=== PATIENT | male | born 1985 | race Caucasian/White ===

== ENCOUNTER 2020-01-25 13:19 | Emergency (ER) | payer OTHER, SELFPAY ==
[2020-01-25 13:29] VITALS: BP 124/69; PULSE 96; RESP 16; TEMP 36.7; O2SAT 98; BMI 19.8
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
--- NOTE | 2020-01-25 13:41 | XR_ITS ---
EXAMINATION: XR CHEST CLINICAL INFORMATION: Cough COMPARISON: None TECHNIQUE: Frontal view of the chest was obtained. FINDINGS: The cardiac and mediastinal contours are normal. The lungs are clear. There is no pleural effusion or pneumothorax. There is curvature of the proximal thoracic spine to the left. IMPRESSION: No evidence for acute disease in the chest.
[2020-01-25] MEDS: 0.9 % Sodium Chloride 1,000 ML 999 ML IVCONT (13:56)
[2020-01-25 13:57] VITALS: BP 117/63; PULSE 86; RESP 21; TEMP 36.8; O2SAT 98
--- NOTE | 2020-01-25 14:00 | ECG_ITS ---
Test Reason : WEAKNESS Blood Pressure : / mmHG Vent. Rate : 079 BPM Atrial Rate : 079 BPM P-R Int : 136 ms QRS Dur : 096 ms QT Int : 366 ms P-R-T Axes : 070 109 063 degrees QTc Int : 419 ms Normal sinus rhythm Incomplete right bundle branch block Possible Right ventricular hypertrophy Abnormal ECG No previous ECGs available Referred By: Kaya Simon Electronically Signed By:JONELLE PORRAS MD
[2020-01-25 14:19] LABS: Glucose, Whole Blood 116 mg/dL (60-115)
[2020-01-25 14:27] LABS: MANUAL DIFF FLAG NO
[2020-01-25 14:28] LABS: Basophils Absolute Auto 0.1 X10*3/uL (0.0-0.2); Basophils Percent Auto 0.4 % (0-2); Eosinophils Absolute Auto 0.3 X10*3/uL (0.0-0.4); Hematocrit 36.5 % (42-52); Hemoglobin 12.3 g/dl (14.0-18.0); Imm Gran Abs Auto 0.16 X10*3/uL (0.00-0.03); Lymphocytes Absolute Auto 2.1 X10*3/uL (1.2-4.9); Lymphocytes Percent Auto 12.6 % (20-40); Mean Corpuscular HGB Conc 33.7 g/dl (31.0-36.0); Mean Corpuscular Volume 95.1 fL (80-98); Mean Platelet Volume 8.5 fL (9.4-12.4); Monocytes Absolute Auto 0.9 X10*3/uL (0.1-1.2); Monocytes Percent Auto 5.2 % (2-11); Neutrophils Absolute Auto 12.9 X10*3/uL (2.0-8.3); Neutrophils Percent Auto 78.8 % (45-73); Platelet Count 650 X10*3/uL (160-400); Red Blood Count 3.84 X10*6/uL (4.60-5.80); Red Cell Distribution Width 12.5 % (11.0-16.0); White Blood Count 16.4 X10*3/uL (4.8-10.8)
[2020-01-25 14:47] LABS: Prothrombin Time 12.1 SEC (10.8-13.0)
[2020-01-25 14:49] LABS: Alanine Aminotransferase 59 U/L (0-40); Albumin Level 3.8 g/dL (3.5-5.0); Alkaline Phosphatase 86 U/L (39-117); Anion Gap 13 (12-20); Aspartate Amino Transferase 22 U/L (5-37); Bilirubin Direct < 0.2 mg/dL (0.0-0.5); Bilirubin Total 0.5 mg/dL (0.0-1.0); Blood Urea Nitrogen 15 mg/dL (9-16); Calcium 9.1 mg/dL (8.4-10.2); Carbon Dioxide 28 mmol/L (22-29); Chloride 105 mmol/L (96-108); Creatinine Clr Calc Pharmacy 136.8; Estimated Glomerular Filt Rate > 60; Glucose Random 100 mg/dL (60-115); Magnesium 1.9 mg/dL (1.6-2.6); Sodium 141 mmol/L (135-145); Total Protein 6.9 g/dL (6.5-8.0)
[2020-01-25 14:50] LABS: Partial Thromboplastin Time 35.2 SEC (24.1-38.0)
[2020-01-25] MEDS: iohexoL 350 MG/ML 100 ML INFUS..BTL IV (15:20)
[2020-01-25] MEDS: Aspirin 81 MG TAB.CHEW PO (16:46)
[2020-01-25 16:48] VITALS: BP 105/63; PULSE 64; RESP 20; O2SAT 98
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
--- NOTE | 2020-01-25 17:20 | PC.NURSE ---
PT SIGNED TRANSFER PAPERWORK, AWAITING TO HEAR ROOM ASSIGNMENT FROM [facility].
[2020-01-25 17:32] LABS: SARS COV2 PCR INHOUSE NEGATIVE (Negative)
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
[2020-01-25 18:00] VITALS: BP 127/77; PULSE 68; RESP 18; O2SAT 99
--- NOTE | 2020-01-25 19:15 | PC.NURSE ---
REPORT RECEIVED. PATIENT REQUESTING TO EAT. SPOKE WITH DR MINA PATIENT IS STILL PENDING TRANSFER TO [facility]. AWAITING ANSWER AT THIS TIME.
--- NOTE | 2020-01-25 19:42 | PC.NURSE ---
GIVEN URINAL PER PATIENT REQUEST. HAD SANDWICH AND JUICE AFTER RECEIVING OK FROM DR MINA.
[2020-01-25 20:00] VITALS: BP 132/57; PULSE 78; RESP 22; O2SAT 98
--- NOTE | 2020-01-25 20:32 | PC.NURSE ---
SPOKE WITH DR MINA. PATIENT REQUESTING TYLENOL, OXYCODONE, AND GABAPENTIN. CAN NOT VERIFY GABAPENTIN DOSE. DR MINA GAVE VERBAL ORDER FOR 5MG OXYCODONE AND 65OMG TYELNOL PO.
--- NOTE | 2020-01-25 20:34 | PC.NURSE ---
THIS US CALLS [facility] TRANSFER LINE AGAIN TO INQUIRE ABOUT BED ASSIGNMENT. TRANSFER LINE STATES THAT THE PATIENT IS STILL PENDING A BED ASSIGNMENT. THIS US PLANS TO BOOK TRANSPORTATION ONCE PATIENT HAS BED ASSIGNMENT AT [facility].
[2020-01-25] MEDS: oxyCODONE HCl Immed Release 5 MG TABLET PO (20:39)
[2020-01-25] MEDS: Acetaminophen 325 MG TABLET 650 MG PO (20:39)
--- NOTE | 2020-01-25 22:22 | PC.NURSE ---
[facility] TRANSFER LINE CALLS BACK AT THIS TIME WITH A BED ASSIGNMENT. [facility] ROOM 149 BED A. RN-TO-RN NUMBER IS [phone].
--- NOTE | 2020-01-25 22:28 | PC.NURSE ---
Addendum entered by Dennis Anderson 01/25/20 22:34: [facility] Original Note: TRANSPORTATION TO [facility] BOOKED WITH [facility] AT THIS TIME.
[2020-01-25 22:32] VITALS: BP 132/76; O2SAT 98
[2020-01-25] MEDS: Gabapentin 100 MG CAPSULE 200 MG PO (22:33)
--- NOTE | 2020-01-25 23:07 | PC.NURSE ---
nurse to nurse given to DANISH BENAVIDEZ at [facility].
== END 2020-01-25 23:24 | disposition short-term general hospital (02) ==
PROVIDERS: Emergency Provider Emergency Medicine
DX: I77.71 Dissection of carotid artery (principal); R53.1 Weakness; Z20.828 Contact with and (suspected) exposure to other viral communicable diseases; J45.909 Unspecified asthma, uncomplicated; F12.90 Cannabis use, unspecified, uncomplicated; F17.200 Nicotine dependence, unspecified, uncomplicated; Z87.820 Personal history of traumatic brain injury; Z79.899 Other long term (current) drug therapy; Z97.8 Presence of other specified devices
CPT/HCPCS: 36415; 70496; 70498; 71045; 80048; 80076; 82947; 83735; 85025; 85610; 85730; 87635; 93005; 96360; 99285; 99291

== ENCOUNTER 2020-02-06 11:35 | Emergency (ER) | payer OTHER, SELFPAY ==
[2020-02-06 11:54] VITALS: BP 143/67; PULSE 82; RESP 16; TEMP 37.4; O2SAT 98; BMI 16.9
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
--- NOTE | 2020-02-06 12:25 | PC.NURSE ---
SEEN BY ATTENDING AT THIS TIME
[2020-02-06 12:40] VITALS: BP 113/62; PULSE 81; O2SAT 99
[2020-02-06] MEDS: Ketorolac Tromethamine 30 MG/ML VIAL IVPUSH (12:42)
[2020-02-06] MEDS: Cyclobenzaprine HCl 10 MG TABLET PO (12:44)
--- NOTE | 2020-02-06 12:52 | PC.NURSE ---
MEDICATED PER ORDERS WITH TORADOL AND FLEXERIL. NO OTHER ORDERS AT THIS TIME. PT IN NAD. TEXTING FAMILY
[2020-02-06 13:36] VITALS: BP 107/56; PULSE 92; O2SAT 98
== END 2020-02-06 14:23 | disposition home or self-care (01) ==
PROVIDERS: Emergency Provider Emergency Medicine
DX: G44.89 Other headache syndrome (principal); M79.601 Pain in right arm; R20.0 Anesthesia of skin; F17.200 Nicotine dependence, unspecified, uncomplicated; Z71.6 Tobacco abuse counseling; Z79.899 Other long term (current) drug therapy
CPT/HCPCS: 96374; 99284; J1885

== ENCOUNTER 2021-01-20 18:37 | Emergency (ER) | payer BC, SELFPAY ==
--- NOTE | ~2021-01-20 | XR_ITS ---
EXAMINATION: XR LUMBAR SPINE XR SACRUM/COCCYX XR HIP, BILATERAL WITH PELVIS CLINICAL INFORMATION: Lumbar spine pain. Back pain. Hip pain. COMPARISON: None TECHNIQUE: 2 views of the lumbar spine. 3 views of the sacrum/coccyx. Frontal view of the pelvis with 2 additional views of each hip. FINDINGS: Lumbar spine: No fracture or subluxation. Vertebral body height and alignment are maintained. Disc spaces are maintained. Nonobstructive bowel gas pattern. Sacrum/coccyx: No fracture or cortical disruption. The sacroiliac joints are symmetric. The sacrum appears intact. The coccyx is appropriately aligned. Pelvis/hips: No fracture or dislocation. The hips are well aligned. Joint spaces are maintained. The sacroiliac joints and pubic symphysis are intact. XR/XR sacrum coccyx min 2V IMPRESSION: No acute osseous abnormality involving the lumbosacral spine or pelvis/hips.
--- NOTE | ~2021-01-20 | XR_ITS ---
EXAMINATION: XR LUMBAR SPINE XR SACRUM/COCCYX XR HIP, BILATERAL WITH PELVIS CLINICAL INFORMATION: Lumbar spine pain. Back pain. Hip pain. COMPARISON: None TECHNIQUE: 2 views of the lumbar spine. 3 views of the sacrum/coccyx. Frontal view of the pelvis with 2 additional views of each hip. FINDINGS: Lumbar spine: No fracture or subluxation. Vertebral body height and alignment are maintained. Disc spaces are maintained. Nonobstructive bowel gas pattern. Sacrum/coccyx: No fracture or cortical disruption. The sacroiliac joints are symmetric. The sacrum appears intact. The coccyx is appropriately aligned. Pelvis/hips: No fracture or dislocation. The hips are well aligned. Joint spaces are maintained. The sacroiliac joints and pubic symphysis are intact. XR/XR lumbar spine 2-3V IMPRESSION: No acute osseous abnormality involving the lumbosacral spine or pelvis/hips.
--- NOTE | ~2021-01-20 | XR_ITS ---
EXAMINATION: XR LUMBAR SPINE XR SACRUM/COCCYX XR HIP, BILATERAL WITH PELVIS CLINICAL INFORMATION: Lumbar spine pain. Back pain. Hip pain. COMPARISON: None TECHNIQUE: 2 views of the lumbar spine. 3 views of the sacrum/coccyx. Frontal view of the pelvis with 2 additional views of each hip. FINDINGS: Lumbar spine: No fracture or subluxation. Vertebral body height and alignment are maintained. Disc spaces are maintained. Nonobstructive bowel gas pattern. Sacrum/coccyx: No fracture or cortical disruption. The sacroiliac joints are symmetric. The sacrum appears intact. The coccyx is appropriately aligned. Pelvis/hips: No fracture or dislocation. The hips are well aligned. Joint spaces are maintained. The sacroiliac joints and pubic symphysis are intact. XR/XR hips CYRUS min 3V IMPRESSION: No acute osseous abnormality involving the lumbosacral spine or pelvis/hips.
[2021-01-20 20:23] VITALS: BP 136/90; PULSE 74; RESP 16; TEMP 36.8; O2SAT 99; BMI 17.7
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
[2021-01-20] MEDS: diazePAM 5 MG TABLET PO (21:07)
[2021-01-20] MEDS: Ketorolac Tromethamine 15 MG/ML VIAL 30 MG IM (21:07)
== END 2021-01-20 23:01 | disposition home or self-care (01) ==
PROVIDERS: Emergency Provider Emergency Medicine; PCP Nurse Practitioner Family
DX: M54.31 Sciatica, right side (principal); M54.16 Radiculopathy, lumbar region; G89.29 Other chronic pain; M54.50 Low back pain, unspecified; Z86.73 Personal history of transient ischemic attack (TIA), and cerebral infarction without residual deficits
CPT/HCPCS: 72100; 72220; 73522; 96372; 99283; 99284; J1885

== ENCOUNTER 2022-11-21 05:22 | Emergency (ER) | payer BC, SELFPAY ==
[2022-11-21 05:28] VITALS: BP 142/73; PULSE 89; RESP 12; TEMP 36.6; O2SAT 99; BMI 17.2
[2022-11-21 05:39] VITALS: BP 142/73; PULSE 89; RESP 12; TEMP 36.6; O2SAT 99
--- OUTSIDE RECORDS SUMMARY | 2022-11-21 05:43 | XMS_ITS | Continuity of Care Document ---
Author Name Unknown Organization [facility] Address [address] [place] [phone]- Care Team Providers Care Ground Services Instructor Name Role Phone Angelica PENA, Betty Sanchez Primary Care Physicia n Encounter [facility] Date(s): 10/27/20 - 11/03/20 [facility] [address] [place] [id number]- Encounter Diagnosis Neuropathic pain(Discharge Diagnosis) - 10/27/20 TBI (traumatic brain injury)(Discharge Diagnosis) - 10/28/20 Rotator cuff syndrome of left shoulder(Discharge Diagnosis) - 10/28/20 Attending Physician: Rossana ALVAREZ, Raul Silva Referring Physician: Angelica PENA, Betty Sanchez Allergies, Adverse Reactions, Alerts Substance Reaction Severity Status Glutens Active Immunizations Given and Recorded Vaccine Date Status Refusal Reason influenza virus vaccine, inactivated 01/27/20 Give n Not Given Vaccine Date Status Refusal Reason pneumococcal 23-valent vaccine 01/27/20 Not Given Patient Refuses Medications albuterol CFC free 90 mcg/inh inhalation aerosol 2 puffs, Inhalation, 4 times a day, PRN for wheezing, # 1 each, 0 Refills, Maintenance, Aerosol Start Date: 04/03/13 Stop Date: 05/03/13 Status: Ordered aspirin 325 mg oral tablet 325 mg, 1, tablet, By Mouth, Daily, # 30 tablet, Refills 0, Maintenance, 05/13/20 10:31:00 EST, Partial fill upon patient request if the prescription is for a schedule II opioid drug. Start Date: 05/13/20 Status: Ordered gabapentin 100 mg oral capsule 100 mg, 1, capsule, By Mouth, 3 times a day, # 90 capsule, Refills 0, Tot. Refills 0, Maintenance, 09/02/20 15:58:00 EDT, Route to Pharmacy Electronically, [facility]/pharmacy #[id number], Partial fill upon patient request if the prescription is for a schedule II... Start Date: 09/02/20 Stop Date: 10/02/20 Status: Ordered gabapentin 300 mg oral capsule See Instructions, 1 capsule By Mouth in a.m. & afternoon & 2 capsules at night. Increase asdirected., # 90 capsule, Refills 1, Tot. Refills 1, Maintenance, 10/27/20 16:23:00 EDT, Instructions Replace Required Details, Route to Pharmacy Electronically... Start Date: 10/27/20 Status: Ordered Outpatient PT Outpatient PT, See Instructions, # 1 each, Refills 0, Tot. Refills 0, Maintenance, Outpatient Physical Therapy, 01/28/20 16:44:00 EDT, Supply Start Date: 01/28/20 Status: Ordered physical therapy physical therapy, See Instructions, # 1 each, Refills 0, Tot. Refills 0, Maintenance, Please see discharge instructions for specifics, 01/29/20 15:08:00 EDT, Supply Start Date: 01/29/20 Status: Ordered Problem List Condition Effective Dates Status Health Status Inform ant Asthma(Confirmed) Active CD (celiac disease)(Confirmed) Active Carotid artery dissection(Confirmed) Active History of pneumothorax(Confirmed) Active History of CVA (cerebrovascu lar accident)(Confirmed) Active Neuropathic pain(Confirmed) Active Rotator cuff syndrome of lef t shoulder(Confirmed) Active Moderate tobacco use disorder(Confirmed) Active TBI (traumatic brain injury)(Confirmed) Active Diagnosis Diagnosis Type Effective Dates Health Status Clinical Service Informant Neuropathic pain Discharge Diagnosis 10/27/20 TBI (traumatic brain injury) Discharge Diagnosis 10/28/20 Rotator cuff syndrome of left shoulder Discharge Diagnosis 10/28/20 Vital Signs Most recent to oldest [Reference Range]: 1 Height 173 cm (10/27/20 3:48 PM) Weight 54.2 kg (10/27/20 3:48 PM) Pulse Rate [55-90 bpm] 72 bpm (10/27/20 3:48 PM) Body Mass Index [18.5-24.99] 18.11 *L* (10/27/20 3:48 PM) Blood Pressure [90-138/55-84 mm Hg] 127/ 71mm Hg (10/27/20 3:48 PM) Blood pressure sites Arm, left (10/27/20 3:48 PM) Social History Social History Type Response Smoking Status 10 or more cigarette s (1/2 pack or more)/day in last 30 days entered on: 05/13/20 Sex
--- OUTSIDE RECORDS SUMMARY | 2022-11-21 05:43 | XMS_ITS | Continuity of Care Document ---
Author Name Unknown Organization [facility] Address [address] [place] [address]- Care Team Providers Care Custom Feed Mill Operator Name Role Phone Angelica PENA, Betty Sanchez Primary Care Physicia n Encounter [facility] Date(s): 09/05/20 - 12/02/20 [facility] [address] [place] [address]- Attending Physician: Angelica PENA, Betty Sanchez Referring Physician: Zaheer Reese MD Allergies, Adverse Reactions, Alerts Substance Reaction Severity Status Glutens Active Immunizations Given and Recorded Vaccine Date Status Refusal Reason influenza virus vaccine, inactivated 01/27/20 Give n influenza virus vaccine, inactivated 01/09/17 Henry rded hepatitis B pediatric vaccine 05/16/99 Recorded hepatitis B pediatric vaccine 03/30/99 Recorded hepatitis B pediatric vaccine 12/08/98 Recorded tetanus-diphtheria toxoids (Td) 12/08/98 Recorded Measles/Mumps/Rubella Virus Vaccine 12/08/98 Recor ded Measles/Mumps/Rubella Virus Vaccine 02/14/88 Recor ded Haemophilus B conjugate (HbOC) vaccine 05/09/88 Re corded Not Given Vaccine Date Status Refusal Reason [...] drug. Start Date: 05/13/20 Status: Ordered gabapentin 300 mg oral capsule [...] disorder(Confirmed) Active TBI (traumatic brain injury)(Confirmed) Active Social History Social History Type Response Smoking Status 10 or more cigarette s (1/2 pack or more)/day in last 30 days entered on: 05/13/20 Sex
--- OUTSIDE RECORDS SUMMARY | 2022-11-21 05:43 | XMS_ITS | Continuity of Care Document ---
Author Name Unknown Organization [facility] Address [address] [place] [address]- Care Team Providers Care Opening Machine Cleaner Name Role Phone Angelica PENA, Betty Sanchez Primary Care Physicia n [facility]counter [facility] Date(s): 11/02/20 - 12/21/20 [facility] [address] [place] [address]- Attending Physician: Not on Staff, Attending MD Allergies, Adverse Reactions, Alerts Substance Reaction [...]
--- OUTSIDE RECORDS SUMMARY | 2022-11-21 05:43 | XMS_ITS | Continuity of Care Document ---
Author Name Unknown Organization [facility] Address [address] [place] [address]- Care Team Providers Care Recreation Therapy Aide Name Role Phone Angelica PENA, Betty Sanchez Primary Care Physicia n Encounter [facility] Date(s): 11/30/20 - 02/09/21 [facility] [address] [place] [address]- Attending Physician: Nancy Gallo NP Allergies, Adverse Reactions, Alerts Substance Reaction Severity [...] capsule, Refills 1, Tot. Refills 1, Maintenance, 12/26/20 16:56:00 EDT, Instructions Replace Required Details, Route to Pharmacy Electronically... Start Date: 12/26/20 Status: Ordered Outpatient PT Outpatient PT, See [...]
--- OUTSIDE RECORDS SUMMARY | 2022-11-21 05:43 | XMS_ITS | Continuity of Care Document ---
Author Name Unknown Organization [facility] Address [address] [facility], [address], [address] [place] [id number]- Care Team Providers Care Forensic Dna Analyst Name Role Phone Angelica PENA, Betty Sanchez Primary Care Physicia n Encounter [facility] Date(s): 03/01/20 - 03/31/20 [facility] [address], [address], [address] [place] [id number]- Attending Physician: Fidelia Aguilar Admitting Physician: Fidelia Aguilar Referring Physician: AdmtrFidelia Allergies, Adverse Reactions, Alerts Substance Reaction Severity [...] Date: 04/03/13 Stop Date: 05/03/13 Status: Ordered apixaban 5 mg oral tablet 1 tablet = 5 mg, By Mouth, 2 times a day, # 60 tablet, 0 Refills, Maintenance, 02/11/20 13:50:00 EDT, Tablet, [id number], 173.5, cm, 02/11/20 13:23:00 EDT, Height, 52.2, kg, 01/26/20 0:39:00 EDT, Dry Weight Start Date: 02/11/20 Status: Ordered Neurontin 100 mg oral capsule 100 mg, 1, capsule, By Mouth, 3 times a day, Take ass needed for pain, # 90 capsule, Refills 0, Tot. Refills 0, Maintenance, 01/29/20 14:17:00 EDT, Route to Pharmacy Electronically, [facility], 183, cm, 01/20/20 15:10:00 EDT, Height, 52.... Start Date: 01/29/20 Status: Ordered Outpatient PT Outpatient PT, See Instructions, # 1 each, Refills 0, Tot. Refills 0, Maintenance, Outpatient Physical Therapy, 01/28/20 16:44:00 EDT, Supply Start Date: 01/28/20 Status: Ordered OxyContin = 5 mg, By Mouth, 2 times a day, 0 Refills, Maintenance, 01/26/20 0:48:00 EDT, Partial fill upon patient request Start Date: 01/26/20 Status: Ordered physical therapy physical therapy, See Instructions, # 1 each, Refills 0, Tot. Refills 0, Maintenance, Please see discharge instructions for specifics, 01/29/20 15:08:00 EDT, Supply Start Date: 01/29/20 Status: Ordered Problem List Condition Effective Dates Status Health Status Inform ant Asthma(Confirmed) Active CD (celiac disease)(Confirmed) Active Carotid artery dissection(Confirmed) Active History of pneumothorax(Confirmed) Active Polysubstance abuse(Confirmed) Active Moderate tobacco use disorder(Confirmed) Active
--- OUTSIDE RECORDS SUMMARY | 2022-11-21 05:43 | XMS_ITS | Continuity of Care Document ---
Author Name Unknown Organization [facility] Address [address] [place] [id number]- Care Team Providers Care Combustion Engineer Name Role Phone Angelica SYSTEMS ARCHITECTURE ANALYST, Betty Sanchez Primary Care Physicia n Encounter [facility] Date(s): 05/06/20 - 09/03/20 [facility] [address] [place] [phone]- Attending Physician: Rossana ALVAREZ, Raul Silva Allergies, Adverse Reactions, Alerts Substance Reaction Severity [...] 09/02/20 15:58:00 EDT, Route to Pharmacy Electronically, [facility]/pharmacy #[id number], Partial fill upon patient request if the prescription is for a schedule II... Start Date: 09/02/20 Stop Date: 10/02/20 Status: Ordered Outpatient PT Outpatient PT, See [...] History of CVA (cerebrovascu lar accident)(Confirmed) Active Moderate tobacco use disorder(Confirmed) Active Social History Social History Type Response Smoking Status 10 or more cigarette s (1/2 pack or more)/day in last 30 days entered on: 05/13/20 Sex
--- OUTSIDE RECORDS SUMMARY | 2022-11-21 05:43 | XMS_ITS | Continuity of Care Document ---
Author Name Unknown Organization [facility] Address [address] [place] [phone]- Care Team Providers Care Technical Service Rep Name Role Phone Angelica PENA, Betty Sancehz Primary Care Physicia n [place] [facility] [place] 08/10/20 - 12/08/20 [facility] [address] [place] [address]- Attending Physician: Fahad Denney MD Admitting Physician: Fahad Denney MD Referring Physician: Betty Dominguez NP Allergies, Adverse Reactions, Alerts Substance Reaction [...]
--- OUTSIDE RECORDS SUMMARY | 2022-11-21 05:43 | XMS_ITS | Continuity of Care Document ---
Author Name Unknown Organization [facility] Address [address] [place] [address]- Care Team Providers Care Sandblast Carver Name Role Phone Angelica PENA, Betty Sanchez Primary Care Physicia n Encounter [facility] Date(s): 06/09/21 - 07/09/21 [facility] [address] [place] [address]- Allergies, Adverse Reactions, Alerts Substance Reaction Severity Status Glutens Active Immunizations Given and Recorded Vaccine Date Status Refusal Reason SARS-CoV-2 (COVID-19) mRNA BNT-162b2 vac 03/06/21 Recorded influenza virus vaccine, inactivated 1 02/14/21 Gi ria influenza virus vaccine, inactivated 01/27/20 Give n [...] 23-valent vaccine 01/27/20 Not Given Patient Refuses 1Result Comment: [facility]# [id number] Medications albuterol CFC free 90 mcg/inh inhalation aerosol 2, puffs, Inhalation, 4 times a day, PRN, # 1 each, Refills 1, Tot. Refills 1, Maintenance, 06/21/21 14:48:00 EST, Aerosol, Route to Pharmacy Electronically, [id number], [facility]/pharmacy #[id number], 173, cm, 03/23/21 10:05:00 EST, Hei... Start Date: 06/21/21 Stop Date: 08/20/21 Status: Ordered gabapentin 300 mg oral capsule See Instructions, TAKE 1 CAPSULE BY MOUTH IN THE AM AND AFTERNOON, AND 2 CAPS AT NIGHT, # 90 capsule, Refills 3, Tot. Refills 3, 06/09/21 16:42:00 EST, Instructions Replace Required Details, Route toPharmacy Electronically, [facility]/pharmacy #[id number], 173, c... Start Date: 06/09/21 Status: Ordered Outpatient PT Outpatient PT, See [...]
--- OUTSIDE RECORDS SUMMARY | 2022-11-21 05:43 | XMS_ITS | Continuity of Care Document ---
Author Name Unknown Organization [facility] Address [address] [place] [address]- Care Team Providers Care Wind Science And Planning Name Role Phone Angelica PENA, Betty Sanchez Primary Care Physicia n Encounter [facility] [place] Date(s): 05/17/20 - 07/17/[address] [address]- Discharge Disposition: A-D/C Home Attending Physician: Kaya Ruggiero Admitting Physician: Kaya Ruggiero Referring Physician: Kaya Ruggiero Allergies, Adverse Reactions, Alerts Substance Reaction Severity [...] opioid drug. Start Date: 05/13/20 Status: Ordered Outpatient PT Outpatient PT, See [...] artery dissection(Confirmed) Active History of pneumothorax(Confirmed) Active Moderate tobacco use disorder(Confirmed) Active Social History Social History Type Response Smoking Status 10 or more cigarette s (1/2 pack or more)/day in last 30 days entered on: 05/13/20 Sex
--- OUTSIDE RECORDS SUMMARY | 2022-11-21 05:43 | XMS_ITS | Continuity of Care Document ---
Author Name Unknown Organization [facility] Address [address] [place] [address]- Care Team Providers Care Tester Equipment Name Role Phone Angelica PENA, Betty Sanchez Primary Care Physicia n [facility]counter [facility] Date(s): 08/18/21 - 09/17/21 [facility] [address] [place] [address]- Attending Physician: Admchristiane, Fidelia Admitting Physician: AdmtrFidelia Referring Physician: Admtr, Ar8 Allergies, Adverse Reactions, Alerts Substance Reaction Severity [...] 01/27/20 Not Given Patient Refuses 1Result Comment: [facility] [place] 2[place]# [id number] Medications Albuterol (Eqv-Proventil HFA) 90 mcg/inh inhalation aerosol 2 puffs, Inhalation, 4 times a day, PRN NEEDED FOR WHEEZING, # 6.7 each, 2 Refills, [id number], 173, cm, 03/23/21 10:05:00 EST, Height, 52.2, kg, 01/26/20 0:39:00 EDT, Dry Weight Start Date: 08/16/21 Status: Ordered gabapentin 300 mg oral capsule See Instructions, TAKE 1 CAPSULE BY MOUTH IN THE AM AND AFTERNOON, AND 2 CAPS AT NIGHT, # 90 capsule, Refills 5, Tot. Refills 5, 09/04/21 7:54:00 EDT, Instructions Replace Required Details, Route to Pharmacy Electronically, [facility]/pharmacy #[id number], 173, cm... Start Date: 09/04/21 Status: Ordered Outpatient PT Outpatient PT, See [...]
--- OUTSIDE RECORDS SUMMARY | 2022-11-21 05:43 | XMS_ITS | Continuity of Care Document ---
Author Name Unknown Organization [facility] Address [address] [place] [address]- Care Team Providers Care Senior Manufacturing Technician Name Role Phone Angelica PENA, Betty Sanchez Primary Care Physicia n Encounter [facility] [place] Date(s): 08/04/20 - 09/03/20 [facility] [address] [place] [address]- Attending Physician: Fidelia Aguilar Admitting Physician: Fidelia [...] 09/02/20 15:58:00 EDT, Route to Pharmacy Electronically, [facility]/pharmacy #[id number], Partial fill upon patient request if the [...]
--- OUTSIDE RECORDS SUMMARY | 2022-11-21 05:43 | XMS_ITS | Continuity of Care Document ---
Author Name Unknown Organization [facility] Address [address] [place] [address]- Care Team Providers Care Network Announcer Name Role Phone Angelica PENA, Betty Sanchez Primary Care Physicia n [place] [facility] [place] 05/27/20 - 06/03/20 [facility] [address] [place] [address]- [place] Encounter Diagnosis Weakness of right upper extremity(Discharge Diagnosis) - 05/27/20 Attending Physician: Angelica PENA, Betty Sanchez Allergies, Adverse [...] pneumothorax(Confirmed) Active Moderate tobacco use disorder(Confirmed) Active Diagnosis Diagnosis Type Effective Dates Health Status Cl inical Service Informant Weakness of right upper extremity Discharge Diagnosis 05/27/20 Vital Signs Most recent to oldest [Reference Range]: 1 Height 173 cm (05/27/20 9:18 AM) Weight Obtained Via Standing scale (05/27/20 9:18 AM) Social History Social History Type Response Smoking Status 10 or more cigarette s (1/2 pack or more)/day in last 30 days entered on: 05/13/20 Sex
--- OUTSIDE RECORDS SUMMARY | 2022-11-21 05:43 | XMS_ITS | Continuity of Care Document ---
Author Name Unknown Organization [facility] Address [address] [place] [address]- Care Team Providers Care Government Operations Consultant Name Role Phone Angelica PENA, Betty Sanchez Primary Care Physicia n [facility]counter [facility] Date(s): 10/18/20 - 12/21/20 [facility] [address] [place] [address]- Attending Physician: Marcelle ALVAREZ, Everett Cuellar Admitting Physician: Everett Ibanez MD Referring Physician: Angelica PENA, Betty Sanchez Allergies, [...]
--- OUTSIDE RECORDS SUMMARY | 2022-11-21 05:43 | XMS_ITS | Continuity of Care Document ---
Author Name Unknown Organization [facility] Address [address] [place] [address]- Care Team Providers Care Pedodontist Name Role Phone Not on Staff, PCP Primary Care Physician Unavail able [place] [facility] [place] [facility] [place] 01/25/20 - 01/29/[address] [address]- [facility] Discharge Disposition: A-D/C Home Attending Physician: Hipolito Hidalgo MD Admitting Physician: Liliam ALVAREZ, Mikal P Referring Physician: Not on Staff, Referring MD Allergies, Adverse Reactions, Alerts Substance Reaction Severity Status Glutens Active Immunizations Given and Recorded Vaccine Date Status Refusal Reason influenza virus vaccine, inactivated 01/27/20 Give n Not Given Vaccine Date Status Refusal Reason pneumococcal 23-valent vaccine 01/27/20 Not Given Patient Refuses Medications acetaminophen 325 mg oral tablet 650 mg, 2, tablet, By Mouth, Every 6 hours, PRN, Refills 0, Maintenance, Pain , Mild, 01/21/20 15:01:00 EDT Start Date: 01/21/20 Status: Ordered albuterol CFC free 90 mcg/inh inhalation aerosol 2 puffs, Inhalation, 4 times a day, PRN for wheezing, # 1 each, 0 Refills, Maintenance, Aerosol Start Date: 04/03/13 Stop Date: 05/03/13 Status: Ordered apixaban 5 mg oral tablet 1 tablet = 5 mg, By Mouth, 2 times a day, # 60 tablet, 0 Refills, Maintenance, 01/29/20 14:16:00 EDT, Tablet, [facility], 183, cm, 01/20/20 15:10:00 EDT, Height, 52.2, kg, 01/26/20 0:39:00 EDT, Dry Weight Start Date: 01/29/20 Status: Ordered Neurontin 100 mg oral capsule 100 mg, 1, capsule, By Mouth, 3 times a day, Take ass needed for pain, # 90 capsule, Refills 0, Tot. Refills 0, Maintenance, 01/29/20 14:17:00 EDT, Route to Pharmacy Electronically, [facility], 183, cm, 01/20/20 15:10:00 EDT, Height, 52.... Start Date: 01/29/20 Status: Ordered Outpatient PT Outpatient PT, See Instructions, # 1 each, Refills 0, Tot. Refills 0, Maintenance, Outpatient Physical Therapy, 01/28/20 16:44:00 EDT, Supply Start Date: 01/28/20 Status: Ordered oxyCODONE 5 mg oral tablet 5 mg, 1, tablet, By Mouth, Every 6 hours, PRN, for 3 days, # 12 tablet, Refills 0, Tot. Refills 0, Acute 02/01/20 14:22:00 EDT, as needed for pain, 01/29/20 14:22:00 EDT, Print Requisition, Partial fill upon patient request Start Date: 01/29/20 Stop Date: 02/01/20 Status: Ordered OxyContin = 5 mg, By Mouth, 2 times a day, 0 Refills, Maintenance, 01/26/20 0:48:00 EDT, Partial fill upon patient request Start Date: 01/26/20 Status: Ordered physical therapy physical therapy, See Instructions, # 1 each, Refills 0, Tot. Refills 0, Maintenance, Please see discharge instructions for specifics, 01/29/20 15:08:00 EDT, Supply Start Date: 01/29/20 Status: Ordered Tylenol 325 mg oral tablet 650 mg, 2, tablet, By Mouth, Every 6 hours, PRN, for 14 days, # 30 tablet, Refills 0, Tot. Refills 0, Acute 02/12/20 14:17:00 EDT, Pain , Mild Temperature Headache, 01/29/20 14:17:00 EDT, Route to Pharmacy Electronically, [facility],... Start Date: 01/29/20 Stop Date: 02/12/20 Status: Ordered Problem List Condition Effective Dates Status Health Status Inform ant Asthma(Confirmed) Active Polysubstance abuse(Confirmed) Active Vital Signs Most recent to oldest [Reference Range]: 1 2 3 Weight 52.2 kg (01/26/20 12:39 AM) Oxygen Saturation [94-100 %] 86 % *L* (01/29/20 3:00 PM) 98 % (01/29/20 10:35 AM) 99 % (01/29/20 7:00 AM) Pulse Rate [55-90 bpm] 111 bpm *H* (01/29/20 3:00 PM) 103 bpm *H* (01/29/20 10:35 AM) 72 bpm (01/29/20 7:00 AM) Blood Pressure [90-138/55-84 mm Hg] 113/85mm Hg (01/29/20 3:00 PM) 113/72mm Hg (01/29/20 10:35 AM) 103/65mm Hg (01/29/20 7:00 AM) Respiratory Rate [16-30 br/min] 16 br/min (01/29/20 3:18 PM) 16 br/min (01/29/20 3:18 PM) 16 br/min (01/29/20 3:18 PM) Temperature [96.8-100.4 DegF] 98.4 DegF (01/29/20 3:00 PM) 98.6 DegF (01/29/20 10:35 AM) 96.7 DegF *L* (01/29/20 7:00 AM) Liters per Minute 0 L/min (01/29/20 7:00 AM) Mode of Delivery (Oxygen) Room air (01/29/20 3:00 PM) Room air (01/29/20 10:35 AM) Room air (01/29/20 7:00 AM) Blood pressure sites Arm, left (01/29/20 3:00 PM) Arm, left (01/29/20 10:35 AM) Arm, right (01/29/20 7:00 AM) Temperature Route Temporal (01/29/20 3:00 PM) Temporal (01/29/20 10:35 AM) Temporal (01/29/20 7:00 AM) Dry Weight 52.2 kg (01/26/20 12:39 AM)
--- OUTSIDE RECORDS SUMMARY | 2022-11-21 05:43 | XMS_ITS | Continuity of Care Document ---
Author Name Unknown Organization [facility] Address [address] [place] [address]- Care Team Providers Care Manager Product Design Name Role Phone Angelica PENA, Betty Sanchez Primary Care Physicia n [facility]counter [facility] Date(s): 05/20/21 - 09/17/21 [facility] [address] [place] [address]- Attending Physician: Not on Staff, Attending MD [...] 01/27/20 Not Given Patient Refuses 1Result Comment: [facility]# [id number] Medications Albuterol (Eqv-Proventil HFA) 90 mcg/inh inhalation aerosol 2 puffs, Inhalation, 4 times a day, PRN NEEDED FOR WHEEZING, # 6.7 each, 2 Refills, [facility] [id number], 173, cm, 03/23/21 10:05:00 EST, Height, 52.2, kg, 01/26/20 0:39:00 EDT, Dry Weight Start Date: 08/16/21 Status: Ordered gabapentin 300 mg oral capsule See Instructions, TAKE 1 CAPSULE BY MOUTH IN THE AM AND AFTERNOON, AND 2 CAPS AT NIGHT, # 90 capsule, Refills 5, Tot. Refills 5, 09/04/21 7:54:00 EDT, Instructions Replace Required Details, Route to Pharmacy Electronically, [facility]/pharmacy #[id number], 173, cm... Start Date: 09/04/21 [...]
--- OUTSIDE RECORDS SUMMARY | 2022-11-21 05:43 | XMS_ITS | Continuity of Care Document ---
Author Name Unknown Organization [facility] Address [address] [place] [address]- Care Team Providers Care Plastic Straightening Roll Operator Name Role Phone Angelica PENA, Betty Sanchez Primary Care Physicia n Encounter [facility] [place] Date(s): 05/13/20 - 05/20/20 [facility] [address] [place] [address]- Encounter Diagnosis Carotid artery dissection(Discharge Diagnosis) - 05/13/20 Weakness of right upper extremity(Discharge Diagnosis) - 05/13/20 Attending Physician: Not on Staff, Attending MD [...] Effective Dates Health Status Clinical Service Informant Carotid artery dissection Discharge Diagnosis 05/13/20 Weakness of right upper extremity Discharge Diagnosis 05/13/20 Vital Signs Most recent to oldest [Reference Range]: 1 Height 173.5 cm (05/13/20 9:28 AM) Social History Social History Type Response Smoking Status 10 or more cigarette s (1/2 pack or more)/day in last 30 days entered on: 05/13/20 Sex
--- OUTSIDE RECORDS SUMMARY | 2022-11-21 05:43 | XMS_ITS | Continuity of Care Document ---
Author Name Unknown Organization [facility] Address [address] [place] [address]- Care Team Providers Care Cloth Shrinker Name Role Phone Angelica PENA, Betty Sanchez Primary Care Physicia n Encounter [facility] [place] Date(s): 02/11/20 - 02/18/20 [facility] [address] [place] [address]- Attending Physician: Angelica PENA, Betty Sanchez Allergies, [...] 01/29/20 14:17:00 EDT, [facility], [facility], cm, 01/20/20 15:10:00 EDT, Height, [...] tablet, Refills 0, Tot. Refills 0, Acute 02/26/20 14:17:00 EST, Pain , Mild Temperature Headache, 02/12/20 14:17:00 EDT, Route to Pharmacy Electronically, [facility]/pharmacy #[id number], 173.5... Start Date: 02/12/20 Stop Date: 02/26/20 Status: Ordered Problem List Condition Effective Dates Status Health Status Inform ant Asthma(Confirmed) Active CD (celiac disease)(Confirmed) Active Carotid artery dissection(Confirmed) Active History of pneumothorax(Confirmed) Active Polysubstance abuse(Confirmed) Active Moderate tobacco use disorder(Confirmed) Active Vital Signs Most recent to oldest [Reference Range]: 1 Height 173.5 cm (02/11/20 1:23 PM) Weight 55.2 kg (02/11/20 1:23 PM) Oxygen Saturation [94-100 %] 97 % (02/11/20 1:23 PM) Pulse Rate [55-90 bpm] 96 bpm *H* (02/11/20 1:23 PM) Body Mass Index [18.5-24.99] 18.34 *L* (02/11/20 1:23 PM) Blood Pressure [90-138/55-84 mm Hg] 122/ 72mm Hg (02/11/20 1:23 PM) Mode of Delivery (Oxygen) Room air (02/11/20 1:23 PM) Blood pressure sites Arm, left (02/11/20 1:23 PM) Weight Obtained Via Standing scale (02/11/20 1:23 PM)
--- OUTSIDE RECORDS SUMMARY | 2022-11-21 05:43 | XMS_ITS | Continuity of Care Document ---
Author Name Unknown Organization [facility] Address [address] [facility], [address] Floor, [address] [place] [address]- Care Team Providers Care Coverer Name Role Phone Angelica PENA, Betty Sanchez Primary Care Physicia n Encounter [facility] [place] Date(s): 01/28/20 - 03/31/20 [facility] [address], [address], [address] [place] [address]- Attending Physician: Tommy Levin MD Admitting Physician: Tommy Levin MD Referring Physician: Alyx Potter NP Allergies, Adverse Reactions, Alerts Substance Reaction [...] 01/29/20 14:17:00 EDT, Route to Pharmacy Electronically, [facility], 183, cm, 01/20/20 15:10:00 EDT, [...]
--- OUTSIDE RECORDS SUMMARY | 2022-11-21 05:43 | XMS_ITS | Continuity of Care Document ---
Author Name Unknown Organization [facility] Address [address] [place] [address]- Care Team Providers Care Supervisor Dry Paste Name Role Phone Angelica PENA, Betty Sanchez Primary Care Physicia n [place] [facility] [place] 09/09/20 [facility] [address] [place] [address]- Encounter Diagnosis History of CVA (cerebrovascular accident)(Discharge Diagnosis) - 09/02/20 Neuropathic pain of left lower extremity(Discharge Diagnosis) - 09/02/20 Attending Physician: Zaheer Reese MD Referring Physician: Angelica PENA, Betty Sanchez [...] 09/02/20 15:58:00 EDT, Route to Pharmacy Electronically, [facility]/pharmacy #[id number], Partial fill upon patient request if the [...] accident)(Confirmed) Active Moderate tobacco use disorder(Confirmed) Active Diagnosis Diagnosis Type Effective Dates Health Status Clinical Service Informant History of CVA (cerebrovascular accident) Discharge Diagnosis 09/02/20 Neuropathic pain of left lower extremity Discharge Diagnosis 09/02/20 Vital Signs Most recent to oldest [Reference Range]: 1 Height 173 cm (09/02/20 12:51 PM) Social History Social History Type Response Smoking Status 10 or more cigarette s (1/2 pack or more)/day in last 30 days entered on: 05/13/20 Sex
--- OUTSIDE RECORDS SUMMARY | 2022-11-21 05:43 | XMS_ITS | Continuity of Care Document ---
Author Name Unknown Organization [facility] Address [address] [place] [address]- Care Team Providers Care Policy Services Representative Name Role Phone Angelica PENA, Betty Sanchez Primary Care Physicia n [facility]counter [facility] Date(s): 06/21/21 - 07/21/21 [facility] [address] [place] [address]- Allergies, Adverse Reactions, Alerts Substance Reaction Severity [...] 01/27/20 Not Given Patient Refuses 1Result Comment: [facility]# [id number] Medications albuterol CFC free 90 mcg/inh inhalation aerosol 2, puffs, Inhalation, 4 times a day, PRN, # 1 each, Refills 1, Tot. Refills 1, Maintenance, 06/21/21 14:48:00 EST, Aerosol, Route to Pharmacy Electronically, [id number], [facility]/pharmacy #[id number], 173, cm, 03/23/21 10:05:00 EST, Hei... Start Date: 06/21/21 Stop Date: 08/20/21 Status: Ordered gabapentin 300 mg oral capsule See Instructions, TAKE 1 CAPSULE BY MOUTH IN THE AM AND AFTERNOON, AND 2 CAPS AT NIGHT, # 90 capsule, Refills 3, Tot. Refills 3, 06/09/21 16:42:00 EST, Instructions Replace Required Details, Route toPharmacy Electronically, [facility]/pharmacy #[id number], 173, c... Start Date: 06/09/21 Status: [...]
--- OUTSIDE RECORDS SUMMARY | 2022-11-21 05:44 | XMS_ITS | Continuity of Care Document ---
Author Name Unknown Organization [facility] Address [address] [place] [address]- Care Team Providers Care Auditor Tax Name Role Phone Angelica PENA, Betty Sanchez Primary Care Physicia n Encounter [facility] [place] Date(s): 03/24/20 - 04/23/[address] [address] Attending Physician: Fidelia Aguilar Admitting Physician: AdmtrFidelia Referring Physician: Admtr, ArJose Juan Allergies, Adverse Reactions, Alerts Substance Reaction Severity [...] Date: 04/03/13 Stop Date: 05/03/13 Status: Ordered Eliquis 5 mg oral tablet 1 tablet, By Mouth, 2 times a day, # 60 tablet, 0 Refills, Maintenance, 04/01/20 7:46:00 EST, [id number], 173.5, cm, 02/25/20 14:10:00 EST, Height, 52.2, kg, 01/26/20 0:39:00 EDT, Dry Weight Start Date: 04/01/20 Status: Ordered Neurontin 100 mg oral capsule 100 mg, 1, capsule, By Mouth, 3 times a day, Take ass needed for pain, # 90 capsule, Refills 0, Tot. Refills 0, Maintenance, 01/29/20 14:17:00 EDT, Route to Pharmacy Electronically, [facility], 183, cm, 01/20/20 15:10:00 [...]
--- OUTSIDE RECORDS SUMMARY | 2022-11-21 05:44 | XMS_ITS | Continuity of Care Document ---
Author Name Unknown Organization [facility] Address [address] [place] [address]- Care Team Providers Care Front Sight Attacher Name Role Phone Angelica PENA, Betty Sanchez Primary Care Physicia n Encounter [facility] [place] Date(s): 06/02/20 - 07/02/[address] [address] Attending Physician: Fidelia Aguilar Admitting Physician: AdmtrFidelia Referring Physician: Admtr ArJose Juan Allergies, Adverse Reactions, Alerts Substance [...]
--- OUTSIDE RECORDS SUMMARY | 2022-11-21 05:44 | XMS_ITS | Continuity of Care Document ---
Author Name Unknown Organization [facility] Address [address] [place] [address]- Care Team Providers Care Furniture Painter Name Role Phone Angelica PENA, Betty Sanchez Primary Care Physicia n [facility] Date(s): 11/02/20 - 12/02/20 [facility] [address] [place], [place] [address] Attending Physician: Fidelia Aguilar Admitting Physician: Fidelia [...]
--- OUTSIDE RECORDS SUMMARY | 2022-11-21 05:44 | XMS_ITS | Continuity of Care Document ---
Author Name Unknown Organization [facility] Address [address] [place] [address]- Care Team Providers Care Cardiology Rn Name Role Phone Angelica PENA, Betty Sanchez Primary Care Physicia n Encounter [facility] Date(s): 11/21/20 - 12/21/20 [facility] [address] [place], [place] [address] Attending Physician: Fidelia Aguilar Admitting Physician: Fidelia [...]
--- OUTSIDE RECORDS SUMMARY | 2022-11-21 05:44 | XMS_ITS | Continuity of Care Document ---
Author Name Unknown Organization [facility] Address [address] [facility], [address] d Floor, [address] [place] [address]- Care Team Providers Care Bobbin Cleaning Machine Operator Name Role Phone Angelica PENA, Betty Sanchez Primary Care Physicia n Encounter [facility] [place] Date(s): 09/15/20 - 10/15/20 [facility] [address], [address], [address] [place] [address]- Attending Physician: Fidelia Aguilar Admitting Physician: Fidelia [...] 09/02/20 15:58:00 EDT, Route to Pharmacy Electronically, [facility]/pharmacy #[id number], Partial fill upon patient request if the [...]
--- OUTSIDE RECORDS SUMMARY | 2022-11-21 05:44 | XMS_ITS | Continuity of Care Document ---
Author Name Unknown Organization [facility] Address [address] [place] [address]- Care Team Providers Care Forestry Patrolman Name Role Phone Angelica PENA, Betty Sanchez Primary Care Physicia n En[place] [facility] [place](s): 02/14/21 - 02/21/21 [facility] [address] [place] [address]- [place] Encounter Diagnosis Asthma(Discharge Diagnosis) - 02/14/21 CD (celiac disease)(Discharge Diagnosis) - 02/14/21 Carotid artery dissection(Discharge Diagnosis) - 02/14/21 History of CVA (cerebrovascular accident)(Discharge Diagnosis) - 02/14/21 History of pneumothorax(Discharge Diagnosis) - 02/14/21 Moderate tobacco use disorder(Discharge Diagnosis) - 02/14/21 Neuropathic pain(Discharge Diagnosis) - 02/14/21 Rotator cuff syndrome of left shoulder(Discharge Diagnosis) - 02/14/21 Attending Physician: Sabino PENA, Nancy Garcia Allergies, Adverse Reactions, Alerts Substance Reaction Severity Status Glutens Active Immunizations Given and Recorded Vaccine Date Status Refusal Reason influenza virus vaccine, inactivated 1 02/14/21 Gi [...] Not Given Patient Refuses 1Result Comment: [facility]# [id number] Medications albuterol CFC free 90 mcg/inh inhalation aerosol 2 puffs, Inhalation, 4 times a day, PRN for wheezing, # 1 each, 0 Refills, Maintenance, Aerosol Start Date: 04/03/13 Stop Date: 05/03/13 Status: Ordered gabapentin 300 mg oral capsule [...] Effective Dates Health Status Clinical Service Informant Asthma Discharge Diagnosis 02/14/21 CD (celiac disease) Discharge Diagnosis 02/14/21 Carotid artery dissection Discharge Diagnosis 02/14/21 History of CVA (cerebrovascular accident) Discharge Diagnosis 02/14/21 History of pneumothorax Discharge Diagnosis 02/14/21 Moderate tobacco use disorder Discharge Diagnosis 02/14/21 Neuropathic pain Discharge Diagnosis 02/14/21 Rotator cuff syndrome of left shoulder Discharge Diagnosis 02/14/21 Vital Signs Most recent to oldest [Reference Range]: 1 2 Height 173 cm (02/14/21 12:27 PM) 173 cm (02/14/21 11:58 AM) Weight 57.3 kg (02/14/21 11:58 AM) Oxygen Saturation [94-100 %] 100 % (02/14/21 11:58 AM) Pulse Rate [55-90 bpm] 65 bpm (02/14/21 11:58 AM) Body Mass Index [18.5-24.99] 19.15 (02/14/21 11:58 AM) Blood Pressure [90-138/55-84 mm Hg] 122/ 68mm Hg (02/14/21 12:27 PM) 115/66mm Hg (02/14/21 11:58 AM) Mode of Delivery (Oxygen) Room air (02/14/21 11:58 AM) Blood pressure sites Arm, left (02/14/21 12:27 PM) Arm, left (02/14/21 11:58 AM) Weight Obtained Via Standing scale (02/14/21 11:58 AM) Social History Social History Type Response Smoking Status 10 or more cigarette s (1/2 pack or more)/day in last 30 days entered on: 05/13/20 Sex
--- OUTSIDE RECORDS SUMMARY | 2022-11-21 05:44 | XMS_ITS | Continuity of Care Document ---
Author Name Unknown Organization [facility] Address [address] [place] [address]- Care Team Providers Care Automobile Parts Assembler Name Role Phone Angelica PENA, Betty Sanchez Primary Care Physicia n Encounter [facility] Date(s): 10/27/20 - 11/26/20 [facility] [address] [place] [address]- Attending Physician: Fidelia Aguilar Admitting Physician: Fidelia [...]
--- OUTSIDE RECORDS SUMMARY | 2022-11-21 05:44 | XMS_ITS | Continuity of Care Document ---
Author Name Unknown Organization [facility] Address [address] [place] [address]- Care Team Providers Care Director Clinical Operations Name Role Phone Angelica PENA, Betty Sanchez Primary Care Physicia n En[facility] [place] Date(s): 05/27/20 - 06/26/20 [facility] [address] [place] [address]- Attending Physician: Fidelia Aguilar Admitting Physician: Fidelia [...]
--- OUTSIDE RECORDS SUMMARY | 2022-11-21 05:44 | XMS_ITS | Continuity of Care Document ---
Author Name Unknown Organization [facility] Adult Address [address] [place] [address]- Care Team Providers Care Patient Care Specialist Name Role Phone Angelica PENA, Betty Sanchez Primary Care Physicia n Encounter [facility] [place] Date(s): 03/23/21 - 03/30/21 [facility] [address] [place] [address]- Encounter Diagnosis Cough(Discharge Diagnosis) - 03/23/21 Sore throat(Discharge Diagnosis) - 03/23/21 Runny nose(Discharge Diagnosis) - 03/23/21 Attending Physician: Zaheer Reese MD Referring Physician: Sabino PENA, Nancy Garcia Allergies, Adverse [...] 01/27/20 Not Given Patient Refuses 1Result Comment: [facility]# [id number] Medications albuterol CFC free 90 mcg/inh inhalation aerosol 2 puffs, Inhalation, 4 times a day, PRN for wheezing, # 1 each, 0 Refills, Maintenance, Aerosol Start Date: 04/03/13 Stop Date: 05/03/13 Status: Ordered gabapentin 300 mg oral capsule See Instructions, TAKE 1 CAPSULE BY MOUTH IN THE AM AND AFTERNOON, AND 2 CAPS AT NIGHT, # 90 capsule, Refills 1, Instructions Replace Required Details, Route to Pharmacy Electronically, [id number], 173, cm, 03/23/21 10:05:00 EST, Height, 52.2, kg... Start Date: 03/24/21 Status: Ordered Outpatient PT Outpatient PT, See Instructions, # 1 each, Refills 0, Tot. Refills 0, Maintenance, Outpatient Physical Therapy, 01/28/20 16:44:00 EDT, Supply Start Date: 01/28/20 Status: Ordered penicillin V potassium 500 mg oral tablet 1 tablet = 500 mg, By Mouth, Every 8 hours, for 10 days, # 30 tablet, 0 Refills, Acute 04/02/21 10:59:00 EST, 03/23/21 10:59:00 EST, Tablet, [facility]/pharmacy #[id number], Partial fill upon patient request if the prescription is for a schedule II opioid drug., 1... Start Date: 03/23/21 Stop Date: 04/02/21 Status: Ordered physical therapy physical therapy, See [...] Diagnosis Diagnosis Type Effective Dates Health Status Clini tameka Service Informant Cough Discharge Diagnosis 03/23/21 Sore throat Discharge Diagnosis 03/23/21 Runny nose Discharge Diagnosis 03/23/21 Vital Signs Most recent to oldest [Reference Range]: 1 Height 173 cm (03/23/21 10:05 AM) Social History Social History Type Response Smoking Status 10 or more cigarette s (1/2 pack or more)/day in last 30 days entered on: 05/13/20 Sex
--- OUTSIDE RECORDS SUMMARY | 2022-11-21 05:44 | XMS_ITS | Continuity of Care Document ---
Author Name Unknown Organization [facility] Address [address] [place] [address]- Care Team Providers Care Cigarette Carton Sealer Name Role Phone Angelica PENA, Betty Sanchez Primary Care Physicia n Encounter [facility] [place](s): 05/05/20 - 05/12/20 [facility] [address] [place] [address]- Attending Physician: Fahad Denney MD Admitting Physician: Fahad Denney MD Allergies, Adverse Reactions, Alerts Substance Reaction [...] tablet, By Mouth, 2 times a day, No additional refills- pt is to follow up with Tra[facility], # 60 tablet, 0 Refills, Maintenance, 05/05/20 13:23:00 EST, [id number], No additional refills- pt is to follow up with Trauma, 173.5, cm, 02/25/20 14:10:... Start Date: 05/05/20 Stop Date: 06/04/20 Status: Ordered Neurontin 100 mg oral capsule 100 mg, 1, capsule, By Mouth, 3 times a day, Take ass needed for pain, # 90 capsule, Refills 0, Tot. Refills 0, Maintenance, 01/29/20 14:17:00 EDT, Route to Pharmacy Electronically, [facility], 183, cm, 01/20/20 [...] oldest [Reference Range]: 1 Height 173.5 cm (05/05/20 1:58 PM) Weight 55.34 kg (05/05/20 1:58 PM) Oxygen Saturation [94-100 %] 96 % (05/05/20 1:58 PM) Pulse Rate [55-90 bpm] 78 bpm (05/05/20 1:58 PM) Body Mass Index [18.5-24.99] 18.38 *L* (05/05/20 1:58 PM) Blood Pressure [90-138/55-84 mm Hg] 114/ 70mm Hg (05/05/20 1:58 PM) Blood pressure sites Arm, left (05/05/20 1:58 PM) Weight Obtained Via Patient/family state d (05/05/20 1:58 PM)
--- OUTSIDE RECORDS SUMMARY | 2022-11-21 05:44 | XMS_ITS | Continuity of Care Document ---
Author Name Unknown Organization [facility] Address [address] [place] [address]- Care Team Providers Care Combination Machine Tender Name Role Phone Angelica PENA, Betty Sanchez Primary Care Physicia n Encounter [facility] [place] Date(s): 05/27/20 - 07/02/[address] [address]- Attending Physician: Kaya Ruggiero Admitting Physician: Kaya Ruggiero Allergies, Adverse Reactions, Alerts [...]
--- OUTSIDE RECORDS SUMMARY | 2022-11-21 05:44 | XMS_ITS | Continuity of Care Document ---
Author Name Unknown Organization [facility] Address [address] [facility], [address] Floor, [address] [place] [address]- Care Team Providers Care Manager Privacy Name Role Phone Angelica PENA, Betty Sanchez Primary Care Physicia n [place] [facility] [place] - 09/22/20 [facility] [address], [address], [address] [place] [address]- Attending Physician: Regla Arnold MD Referring Physician: Angelica PENA, Betty Sanchez [...] 09/02/20 15:58:00 EDT, Route to Pharmacy Electronically, [facility]/pharmacy #[id number], Partial fill upon patient request if the [...]
--- OUTSIDE RECORDS SUMMARY | 2022-11-21 05:44 | XMS_ITS | Continuity of Care Document ---
Author Name Unknown Organization [facility] Address [address] [place] [address]- Care Team Providers Care Oracle Developer Name Role Phone Angelica PENA, Betty Sanchez Primary Care Physicia n [place] [facility] [place] 05[place]12/20 [facility] [address] [place] [address]- Attending Physician: Rossana ALVAREZ, Raul Silva Allergies, [...] 0 Refills, Maintenance, 05/05/20 13:23:00 EST, [id number], No additional refills- pt is to follow up with Trauma, 173.5, cm, 02/25/20 14:10:... Start Date: 05/05/20 Stop Date: 06/04/20 Status: Ordered Neurontin 100 mg oral capsule 100 mg, 1, capsule, By Mouth, 3 times a day, Take ass needed for pain, # 90 capsule, Refills 0, Tot. Refills 0, Maintenance, 01/29/20 14:17:00 EDT, Route to Pharmacy Electronically, [facility], 183, cm, 01/20/20 15:10:00 EDT, [...]
[2022-11-21] MEDS: Lidocaine HCl Viscous 2 % 15 ML SOLUTION MUCOUS MEM (05:52)
--- NOTE | 2022-11-21 06:28 | ED_ITS ---
HPI - Ear Problem General Chief complaint: Ear Problems Stated complaint: bug in ear Time Seen by Provider: 11/21/22 05:42 Source: patient Mode of arrival: ambulatory Limitations: no limitations History of Present Illness HPI Narrative: waited 4 hours at [facility] in triage they attempted to remove what the triage team thought was a tick from R ear - irrigated ear and he tried to shake his head but he still feels the tick move. has had some dried blood in ear came here as he could not wait any longer. Complaint: foreign body Location: right ear Duration: constant Severity: moderate Relieving factors: nothing Exacerbating factors: position of head Context: other Associated symptoms ear: external ear tenderness Treatment prior to arrival: other (irrigation, attempts at removal) Related Data Home Medications Medication Instructions Recorded Confirmed acetaminophen 325 mg tablet 650 mg PO TID 01/25/20 01/25/20 (Tylenol) albuterol 90 mcg/actuation aerosol 90 mcg inhalation Q4-6H PRN 01/25/20 01/25/20 inhaler Shortness Of Breath Or Wheezing gabapentin 100 mg capsule 200 mg PO TID 01/25/20 01/25/20 oxycodone 5 mg tablet 5 mg PO BID 01/25/20 01/25/20 Previous Rx's Medication Instructions Recorded cyclobenzaprine 10 mg tablet 10 mg PO TID #10 tabs 02/06/20 cyclobenzaprine 10 mg tablet 10 mg PO TID PRN muscle spasm #20 01/20/21 tabs diazepam 5 mg tablet (Valium) 5 mg PO BEDTIME PRN muscle spasm 01/20/21 #7 tabs Allergies Allergy/AdvReac Type Severity Reaction Status Date / Time gluten AdvReac Gastrointestinal Verified 01/20/21 20:46 Upset Review of Systems Review of Systems: Constitutional : No Fever, No Chills, ENT: no headaches, pos ear pain Cardiovascular : No Chest Pain, No SOB Respiratory : No Dyspnea Gastrointestinal : No abdominal pain Musculoskeletal : No Joint Swelling Skin : No rash, no skin laceration Neuro : No Weakness, No Numbness PMFSH Past Medical History Attestation statement: The following information was validated with the patient. Medical History Asthma Pneumothorax Stroke TBI (traumatic brain injury) Social History Social History (Reviewed 11/21/22 @ 06:30 by AVANI Hernandez Alcohol intake: never Smoked in Last 30 Days: Yes Use of substances other than those prescribed or required for medical reasons: Yes Substance Use Type: Marijuana Substance Use Frequency: Daily Advance Directives: No Advance Directives Information Provided: No Physical Exam Vital Signs: Vital Signs: Last Vital Signs Temp 97.8 F 11/21/22 05:39 Pulse 89 11/21/22 05:39 Resp 12 11/21/22 05:39 BP 142/73 H 11/21/22 05:39 Pulse Ox 99 11/21/22 05:39 O2 Del Method Room Air 11/21/22 05:39 BMI result Body Mass Index 17.2 Appearance: Alert. Oriented X3. No acute distress. very anxious Eyes: Pupils equal, round and reactive to light. ENT: Pharynx normal. R ear - body of insect seen boggy and [place] ? tick there is blood at opening of canal as well I do not see legs. the patient moves his head every time and cannot tolerate much even otoscope. Neck: Normal inspection. Neck supple. CVS: Pulses normal. Respiratory: No respiratory distress. Abdomen: Soft and nontender. Skin: Skin warm and dry. Normal skin color. Extremities: No lower extremity edema. Neuro: Oriented X 3. No motor deficit. No sensory deficit. Medications Administered Discontinued Medications Generic Name Dose Route Start Last Admin Trade Name Patricia PRN Reason Stop Dose Admin Lidocaine HCl 15 ml 11/21/22 05:44 11/21/22 05:52 Lidocaine Hcl Viscous 2 % 15 Ml Solution MUCOUS MEM 11/21/22 05:45 15 ml ONCE ONE Administration Procedures Procedure Narrative Procedure Narrative: saw body of tick - attempted removal with micro alligators but patient moved and blood was noted in canal body of insect was noted just in canal so the blood I suspect is from the insect itself and not the canal as the patient did not report pain and I do not see trauma to canal that is new. at this time it is not safe to remove and I have ordered IV ativan and will sign out to oncoming doctor. Medical Decision Making Medical Decision Making MDM Narrative: 37 yo male here with insect in R ear with previous attempts at removal - he has blood in the canal on arrival I cannot see the TM as he will not allow it. I am going to attempt one removal but he may require sedation. Differential Diagnosis Differential Diagnoses: The differential diagnosis associated with the presentation includes FB, perforation, infection External Record Review External record reviewed: Inpatient record Prescription Management I considered prescription management with: Other Discharge Plan Discharge Clinical Impression: Foreign body in ear Patient Disposition: Still a Patient Prescriptions: No Action cyclobenzaprine 10 mg tablet 10 mg PO TID Qty: 10 0RF gabapentin 100 mg Capsule 200 mg PO TID acetaminophen [Tylenol] 325 mg Tablet 650 mg PO TID albuterol 90 mcg/actuation Aerosol 90 mcg INHALATION Q4-6H PRN (Reason: Shortness Of Breath Or Wheezing) oxycodone 5 mg Tablet 5 mg PO BID cyclobenzaprine 10 mg tablet 10 mg PO TID PRN (Reason: muscle spasm) Qty: 20 0RF diazepam [Valium] 5 mg tablet 5 mg PO BEDTIME PRN (Reason: muscle spasm) Qty: 7 0RF
[2022-11-21] MEDS: LORazepam 2 MG/ML VIAL 1 MG IVPUSH (06:30)
--- NOTE | 2022-11-21 07:50 | PC.NURSE ---
Elda OCHOA was able to remove a moth from patients right ear prior to discharge
== END 2022-11-21 08:01 | disposition home or self-care (01) ==
PROVIDERS: Emergency Provider Student in an Organized Health Care Education/Training Program
DX: T16.1XXA Foreign body in right ear, initial encounter (principal); S01.341A Puncture wound with foreign body of right ear, initial encounter; X58.XXXA Exposure to other specified factors, initial encounter; Y93.9 Activity, unspecified; Y92.9 Unspecified place or not applicable; Y99.9 Unspecified external cause status
CPT/HCPCS: 69200; 96374; 99284; J2060